=== PATIENT | male | born 1950 | race Caucasian/White ===

== ENCOUNTER → 2017-03-22 | Outpatient (CLI) | payer MEDICARE | LOC: LAB 14:02 | DX: C61 Malignant neoplasm of prostate (principal); Z12.5 Encounter for screening for malignant neoplasm of prostate | CPT/HCPCS: G0103 ==

== ENCOUNTER 2017-06-02 20:34 | Emergency (ER) | payer OTHER, MEDICARE ==
[~2017-06-02] VITALS: Ht 177.8 cm; Wt 64.9 kg
[2017-06-02] MEDS ORDERED: MORPHINE SULFA100 MG PO (20:53)
[2017-06-02] MEDS ORDERED: OXYCODONE SR 2020 MG PO (20:54)
--- OUTSIDE RECORDS SUMMARY | 2017-06-02 21:06 | External Medical Summary Rpt ---
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 Role Phone Dina MERCADO PCP [phone] Encounter [facility] Date(s): 04/17/16 - 04/24/16 [facility] [address] [place] [id number]- [phone] Discharge Disposition: OP Self Care or Home Attending Physician: Shukri MANCILLA MD Admitting Physician: Shukri MANCILLA MD Referring Physician: ANN MERCADO MD Reason for Visit PERIPHERAL VASCULAR DISEASE, UNSPECIFIED Vital Signs Most recent 1 2 3 to oldest [Reference Range]: Temperature Temporal artery Source scanning (04/24/16 8:58 AM) Temperature Fahrenheit Mode (04/24/16 8:58 AM) Temperature, 98.7 Deg F Fahrenheit (04/24/16 8:58 AM) [96.8-99.7 Deg F] Clinical 37.1 Deg C Temperature, (04/24/16 8:58 AM) C Peripheral 51 bpm Pulse Rate *LOW* [60-100 bpm] (04/24/16 8:58 AM) Heart Rate 60 bpm 56 bpm 58 bpm Monitored (04/24/16 2:45 PM) *LOW* *LOW* [60-100 bpm] (04/24/16 2:30 PM) (04/24/16 2:15 PM) Respiratory 25 Breaths/Min 25 Breaths/Min 34 Breaths/Min Rate [14-20 *HI* *HI* *HI* Breaths/Min] (04/24/16 2:45 PM) (04/24/16 2:30 PM) (04/24/16 2:15 PM) Blood 155/59 mmHg 150/65 mmHg 128/64 mmHg Pressure *HI* *HI* (04/24/16 2:15 PM) [90-140/60-9 (04/24/16 2:45 PM) (04/24/16 2:30 PM) 0 mmHg] Mean 89 99 87 Arterial (04/24/16 2:45 PM) (04/24/16 2:30 PM) (04/24/16 2:15 PM) Pressure (MAP)-BMDI Oxygen 96 % 96 % 95 % Saturation (04/24/16 2:00 PM) (04/24/16 1:45 PM) (04/24/16 1:30 PM) [94-100 %] Problem List Condition Effective Status Health Informant Dates Status Amputation,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) Arthritis(Co Active nfirmed) Back Active pain(Confirm ed) CA - Cancer Active patient of prostate(Con firmed) Chronic Active cough(Confir med) COPD(Confirm Active ed) 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) Hard of Active hearing(Conf irmed) Hemorrhoids( Active Confirmed) Peptic ulcer Active disease(Conf irmed) Peripheral Active neuropathy all extremities( Confirmed) PVD Active patient (peripheral vascular disease)(Con firmed) Pneumonia 02/21/13 Active x2(Confirmed ) Restless Active legs syndrome(Con firmed) Secondary Active patient cancer of bone(Confirm ed) SOB(Confirme Active d) wears Active dentures(Con firmed) Wears Active glasses(Conf irmed) Allergies, Adverse Reactions, Alerts No Known Allergies Medications atorvastatin 20 mg, Oral, At Bedtime, Refills: 0 famotidine 20 mg, Oral, Two Times A Day, Refills: 0 morphine 30 mg, Oral, every 12 hours, Refills: 0 [id number] mg, Oral, Every 4 Hours, 1-3 tablets q3-4 hours PRN pain, As Needed, Pain, Refills: 0 rOPINIRole 0.5 mg, Oral, At Bedtime, Refills: 0 Results GENERAL CHEMISTRY Most recent 1 to oldest [Reference Range]: eGFR 118 mL/min/1.73m2 [>=60 (04/24/16 9:05 AM) mL/min/1.73m 2] eGFR 97 mL/min/1.73m2 NonAfrican (04/24/16 9:05 AM) [>=60 mL/min/1.73m 2] BUN POC 20 mg/dL [8-26 mg/dL] (04/24/16 9:05 AM) Creatinine 0.8 mg/dL POC [0.6-1.3 (04/24/16 9:05 AM) mg/dL] COAGULATION Most recent 1 to oldest [Reference Range]: Protime POC 20.1 Second(s) [9.6-14.6 *HI* Second(s)] (04/24/16 9:07 AM) INR POC 1.7 [0.9-1.2] *HI* (04/24/16 9:07 AM) Immunizations No data available for this section Procedures Procedure Date Related Body Site Diagnosis cervical diskectomy & fusion Social History Social History Response Type Smoking Status Tobacco Use Within Last Twelve Months Cigarettes; Current every day smoker; Years of Tobacco Use 50; Packs/Tins Daily 1 Assessment and Plan Extracted from: Title: Angiogram Runoff Author: DOMINGUEZ DAVIS Date: 04/24/16 Infrapopliteal helen Greenberg MD Procedure Performed: Aortogram with runoff Procedural MD: Aliza Fire Control Technician G: _None Sedation: None Findings: No significant aorto-iliac dz Chronic right SFA occlusion _ Intervention: None Complications: No significant EBL: Minimal Specimen(s) Removed: _ N/A Full report to follow. Hospital Discharge Instructions Patient EducationAngiogram, Care After Conscious Sedation, Adult, Care After Groin Site Care (Custom) (CUSTOM) Smoking, You Can Quit, [id number]
--- OUTSIDE RECORDS SUMMARY | 2017-06-02 21:06 | External Medical Summary Rpt ---
Author Author [facility] Organization [facility] Address Unknown Phone Unavailable Care Team Providers Care Health And Safety Advisor Name Role Phone Dina MERCADO PCP [phone] Encounter [facility] Date(s): 04/17/16 - 04/24/16 [facility] [address] [place] [address]- [phone] Discharge Disposition: OP Self Care or Home [...] mg, Oral, every 12 hours, Refills: 0 [id number] mg, Oral, Every 4 Hours, 1-3 tablets [...] Performed: Aortogram with runoff Procedural MD: Aliza Timber Framer: _None Sedation: None Findings: No significant aorto-iliac dz Chronic right SFA occlusion _ Intervention: None Complications: No significant EBL: Minimal Specimen(s) Removed: _ N/A Full report to follow. Hospital Discharge Instructions Patient EducationAngiogram, Care After Conscious Sedation, Adult, Care After Groin Site Care (Custom) (CUSTOM) Smoking, You Can Quit, [id number]
--- OUTSIDE RECORDS SUMMARY | 2017-06-02 21:07 | External Medical Summary Rpt | CCD ---
Author Author , MADALYN VICENTE Address Unknown Phone [email or web address] Purpose Continuity of Care Document - 02-17-2017 through 2016 Results Labs Lab Lab Date Result Refere Interp Status Commen Order Detail nces retati t Range on Drugs Ur Scn (03-16-2017 10:53) Comment: Cutoff For Drugs Screened: Comment: Comment: Amphetamines 500 ng/ml Comment: Barbiturates 200 ng/ml Comment: Benzodiazepines 150 ng/ml Comment: Cocaine 150 ng/ml Comment: Methadone 200 ng/ml Comment: Opiates 100 ng/ml Comment: Phencyclidine 25 ng/ml Comment: THC 50 ng/ml Comment: Methamphetamine 500 ng/ml Comment: Tricyclic Antidepressants 300 ng/ml Comment: Oxycodone 100 ng/ml Comment: Propoxyphene 300 ng/ml Comment: Buprenorphine 10 ng/ml Comment: Comment: The normal value for all drugs tested is negative. This report includes unconfirmed screening results, with the cutoff values listed, to be used for medical treatment purposes only. Unconfirmed results must not be used for non-medical purposes such Bupreno [id number] Negativ complet rphine 017 09 e ed SerPl-m 10:53 Negativ Cnc e SCT Propoxy 2760326 Negativ complet ph Ur 017 09 e ed Ql 10:53 Negativ e SCT Oxycodo 4457829 Negativ complet ne Ur 017 4 e ed Ql Scn 10:53 Positiv e SCT Barbitu 7147036 Negativ complet rates 017 09 e ed Ur Ql 10:53 Negativ Scn e SCT Methado 3820621 Negativ complet ne Ur 017 09 e ed Ql Scn 10:53 Negativ e SCT Tricycl 8341570 Negativ complet ics Ur 017 09 e ed Ql Scn 10:53 Negativ e SCT Benzodi 7026178 Negativ complet az Ur 017 09 e ed Ql Scn 10:53 Negativ e SCT Amphet+ 6020166 Negativ complet Methamp 017 09 e ed het Ur 10:53 Negativ Ql e SCT Opiates 5486451 Negativ complet Ur Ql 017 4 e ed 10:53 Positiv e SCT Ampheta 0007484 Negativ complet mines 017 09 e ed Ur Ql 10:53 Negativ e SCT Cocaine 8158145 Negativ complet Ur Ql 017 09 e ed 10:53 Negativ e SCT PCP Ur 3946282 Negativ complet Ql Scn 017 09 e ed 10:53 Negativ e SCT Cannabi 1758081 Negativ complet noids 017 09 e ed SerPl 10:53 Negativ Ql e SCT CBC with Ordered Manual Differential panel in Blood (02-17-2017 13:27) LYMPH 34 % 10% - Normal complet 017 50% ed 13:27 Platele SLIGHT complet ts 017 DECREAS ed [Presen 13:27 E ce] in Blood by Light microsc opy
--- OUTSIDE RECORDS SUMMARY | 2017-06-02 21:07 | External Medical Summary Rpt | CCD ---
Author Author [facility] Organization [facility] Address Unknown Phone Unavailable Purpose Continuity of Care Document - through 2016
--- OUTSIDE RECORDS SUMMARY | 2017-06-02 21:07 | External Medical Summary Rpt | CCD ---
Author Author , MADALYN VICENTE Address Unknown Phone [email or web address] Purpose Continuity of Care Document - 02-17-2017 [...] be used for non-medical purposes such Bupreno [id number] Negativ complet rphine 017 09 e ed SerPl-m 10:53 Negativ Cnc e SCT Propoxy 2170430 Negativ complet ph Ur 017 09 e ed Ql 10:53 Negativ e SCT Oxycodo 6693381 Negativ complet ne Ur 017 4 e ed Ql Scn 10:53 Positiv e SCT Barbitu 3570165 Negativ complet rates 017 09 e ed Ur Ql 10:53 Negativ Scn e SCT Methado 5860689 Negativ complet ne Ur 017 09 e ed Ql Scn 10:53 Negativ e SCT Tricycl 4621518 Negativ complet ics Ur 017 09 e ed Ql Scn 10:53 Negativ e SCT Benzodi 7717689 Negativ complet az Ur 017 09 e ed Ql Scn 10:53 Negativ e SCT Amphet+ 4051836 Negativ complet Methamp 017 09 e ed het Ur 10:53 Negativ Ql e SCT Opiates 9360580 Negativ complet Ur Ql 017 4 e ed 10:53 Positiv e SCT Ampheta 9624509 Negativ complet mines 017 09 e ed Ur Ql 10:53 Negativ e SCT Cocaine 6402494 Negativ complet Ur Ql 017 09 e ed 10:53 Negativ e SCT PCP Ur 5608194 Negativ complet Ql Scn 017 09 e ed 10:53 Negativ e SCT Cannabi 6857810 Negativ complet noids 017 09 e ed SerPl 10:53 Negativ Ql e SCT CBC with Ordered Manual Differential panel in Blood (02-17-2017 13:27) LYMPH 34 % 10% - Normal complet 017 50% ed 13:27 Platele SLIGHT complet ts 017 DECREAS ed [Presen 13:27 E ce] in Blood by Light microsc opy
--- OUTSIDE RECORDS SUMMARY | 2017-06-02 21:08 | External Medical Summary Rpt | CCD ---
Demographics Preferred Language Uruguayan Marital Status Unknown [employer] Affiliation Unknown Race Unknown Ethnic Group Unknown Author Author , CINTHIA VICENTE Address Unknown Phone Immunization Unable to retrieve immunization data due to connection failure with Immunization Registry. Please try again later.
--- OUTSIDE RECORDS SUMMARY | 2017-06-02 21:08 | External Medical Summary Rpt | CCD ---
Demographics Preferred Language Kenyan Marital Status Unknown [facility] Affiliation Unknown Race Unknown Ethnic Group Unknown Author Author , CINTHIA VICENTE Address Unknown Phone Immunization Unable to retrieve immunization data due to connection failure with Immunization Registry. Please try again later.
--- OUTSIDE RECORDS SUMMARY | 2017-06-02 21:08 | External Medical Summary Rpt ---
Author Author [employer], [employer] Organization [employer] Address Unknown Phone Unavailable Results Prostate specific Ag [Mass/volume] in Cerebral spinal fluid Observa Value Referen Units Interpr Notes Date tion ce etation Range Prostate 0.0 - 4.0 ng/mL High No Mar 22 specific informati 2017 2:04 Ag on in PM [Mass/vol source ume] in data Cerebral spinal fluid CBC with Ordered Manual Differential panel in Blood Observa Value Referen Units Interpr Notes Date tion ce etation Range Lymphocyt 0 - 5 % Normal No Feb 17 es informati 2016 1:27 Variant/1 on in PM 00 source leukocyte data s in Blood by Manual count Basophils 0 - 0.2 K/MM3 Normal No Feb 17 inform2016 1:27 [#/volume on in PM ] in source Blood by data Automated count Basophils 0.1 - 2.0 % Normal No Feb 17 informati 2016 1:27 leukocyte on in PM s in source Blood by data Automated count Eosinophi 0.0 - 0.4 K/mm3 Normal No Feb 17 ls informati 2016 1:27 [#/volume on in PM ] in source Blood by data Automated count Eosinophi 0.1 - % Normal No Feb 17 ls 12.0 informati 2016 1:27 leukocyte on in PM s in source Blood by data Automated count Eosinophi 0 - 3 % Normal No Feb 17 ls/100 informati 2016 1:27 leukocyte on in PM s in source Blood by data Manual count Granulocy 1.3 - 8.0 K/mm3 Normal No Feb 17 kian informati 2016 1:27 [#/volume on in PM ] in source Blood by data Automated count Granulocy 37.0 - % Normal No Feb 17 kian/100 80.0 informati 2016 1:27 leukocyte on in PM s in source Blood by data Automated count Hematocri 42.0 - % High No Feb 17 t [Volume 52.0 informati 2016 1:27 on in PM Fraction] source of Blood data Hemoglobi 14.1 - g/dL Normal No Feb 17 n 18.0 informati 2016 1:27 [Mass/vol on in PM ume] in source Blood data Lymphocyt 0.7 - 4.5 K/mm3 Normal No Feb 17 es inform2016 1:27 [#/volume on in PM ] in source Unspecifi data ed specimen by Automated count Lymphocyt 10 - 50 % Normal No Feb 17 es inform2016 1:27 [#/volume on in PM ] in source Unspecifi data ed specimen by Automated count LYMPH 34 10 - 50 % Normal No Feb 17 informa 2016 tion in 1:27 PM source data Erythrocy 27 - 31.2 pg Normal No Feb 17 te mean informati 2016 1:27 corpuscul on in PM ar source hemoglobi data n [Entitic mass] Erythrocy 31.8 - g/dl Normal No Feb 17 te mean 35.4 informati 2016 1:27 corpuscul on in PM ar source hemoglobi data n concentra tion [Mass/vol ume] by Automated count Erythrocy 82.2 - fl Normal No Feb 17 te mean 97.8 ati 2016 1:27 corpuscul on in PM ar volume source [Entitic data volume] by Automated count Monocytes 0.1 - 1.0 K/mm3 Normal No Feb 17 informati 2016 1:27 [#/volume on in PM ] in source Blood by data Automated count Monocytes 1.7 - 9.3 % Normal No Feb 17 informati 2016 1:27 leukocyte on in PM s in source Blood by data Automated count Monocytes 2 - 9 % Normal No Feb 17ati 2016 1:27 leukocyte on in PM s in source Blood by data Automated count Platelet 7.4 - fl Normal No Feb 17 mean 10.4 informati 2016 1:27 volume on in PM [Entitic source volume] data in Blood by Automated count Platele SLIGHT No No No No Feb 17 ts DECREAS informa informa informa informa 2017 [Presen E tion in tion in tion in tion in 1:27 PM ce] in source source source source Blood data data data data by Light microsc opy Platelets 142 - 424 K/mm3 Low No Feb 17 informati 2017 1:27 [#/volume on in PM ] in source Blood data Neutrophi 42 - 76 % Normal No Feb 17 ls informati 2016 1:27 [#/volume on in PM ] in source Blood by data Automated count Erythrocy 4.6 - 6.2 M/mm3 Normal No Feb 17 kian 2016 1:27 [#/volume on in PM ] in source Amniotic data fluid Erythrocy 11.5 - % Normal No Feb 17 te 17.5 inform2016 1:27 distribut on in PM ion width source [Entitic data volume] by Automated count Cells No #CELLS No No Feb 17 Counted informati informati informati 2016 1:27 Total [#] on in on in on in PM in Blood source source source data data data Leukocyte 4.8 - K/MM3 Low No Feb 17 s 10.8 informati 2016 1:27 [#/volume on in PM ] in source Blood data CBC W Auto Differential panel in Blood Observa Value Referen Units Interpr Notes Date tion ce etation Range Basophils 0 - 0.2 K/MM3 Normal No Feb 17 inform2016 1:27 [#/volume on in PM ] in source Blood by data Automated count Basophils 0.1 - 2.0 % Normal No Feb 17 informati 2016 1:27 leukocyte on in PM s in source Blood by data Automated count Eosinophi 0.0 - 0.4 K/mm3 Normal No Feb 17 ls ati 2016 1:27 [#/volume on in PM ] in source Blood by data Automated count Eosinophi 0.1 - % Normal No Feb 17 ls/100 12.0 inform2016 1:27 leukocyte on in PM s in source Blood by data Automated count Granulocy 1.3 - 8.0 K/mm3 Normal No Feb 17 kian ati 2016 1:27 [#/volume on in PM ] in source Blood by data Automated count Granulocy 37.0 - % Normal No Feb 17 kian/100 80.0 informati 2016 1:27 leukocyte on in PM s in source Blood by data Automated count Hematocri 42.0 - % High No Feb 17 t [Volume 52.0 inform2016 1:27 on in PM Fraction] source of Blood data Hemoglobi 14.1 - g/dL Normal No Feb 17 n 18.0 informati 2016 1:27 [Mass/vol on in PM ume] in source Blood data Lymphocyt 0.7 - 4.5 K/mm3 Normal No Feb 17 es ati 2016 1:27 [#/volume on in PM ] in source Unspecifi data ed specimen by Automated count Lymphocyt 10 - 50 % Normal No Feb 17 es informati 2016 1:27 [#/volume on in PM ] in source Unspecifi data ed specimen by Automated count Erythrocy 27 - 31.2 pg Normal No Feb 17 te mean informati 2016 1:27 corpuscul on in PM ar source hemoglobi data n [Entitic mass] Erythrocy 31.8 - g/dl Normal No Feb 17 te mean 35.4 informati 2016 1:27 corpuscul on in PM ar source hemoglobi data n concentra tion [Mass/vol ume] by Automated count Erythrocy 82.2 - fl Normal No Feb 17 te mean 97.8 informati 2016 1:27 corpuscul on in PM ar volume source [Entitic data volume] by Automated count Monocytes 0.1 - 1.0 K/mm3 Normal No Feb 17 informati 2016 1:27 [#/volume on in PM ] in source Blood by data Automated count Monocytes 1.7 - 9.3 % Normal No Feb 17 / informati 2017 1:27 leukocyte on in PM s in source Blood by data Automated count Platelet 7.4 - fl Normal No Feb 17 mean 10.4 informati 2017 1:27 volume on in PM [Entitic source volume] data in Blood by Automated count Platelets 142 - 424 K/mm3 Low No Feb 17 informati 2016 1:27 [#/volume on in PM ] in source Blood data Erythrocy 4.6 - 6.2 M/mm3 Normal No Feb 17 kian informati 2016 1:27 [#/volume on in PM ] in source Amniotic data fluid Erythrocy 11.5 - % Normal No Feb 17 te 17.5 informati 2017 1:27 distribut on in PM ion width source [Entitic data volume] by Automated count Leukocyte 4.8 - K/MM3 Low No Feb 17 s 10.8 informati 2016 1:27 [#/volume on in PM ] in source Blood data
--- NOTE | 2017-06-02 23:55 | Emergency Room Report ---
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 N Clinical Suspician of Infection? N Mental Status: 1 - Regular (Normal Baseline) Sepsis Risk:Low Sepsis Risk Have you (or family members/close friends) recently traveled outside the [place]? N If Yes, where/when: Have you had exposure to infectious disease within the past month? N TB? Other? Specify: Source patient, RN notes reviewed, family, RN/MD Exam Limitations no limitations Comment This is a 67-year-old male patient presenting to the emergency room with RIGHT dorsal hand wound, with active bleeding, after scab fell off, earlier today. 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 ALLERGIES Coded Allergies: No Known Allergies (06/02/17) Home Medications Reported Medications MORPHINE SULFATE SR/ER (Morphine Sulf ER) 100 MG PO TID Oxycodone Hcl Sr (Oxycodone Sr 20MG) 30 MG PO Q12H6 History Medical History General CAD? No Angina: No [place]: No Hypertension? No Hyperlipidemia? No CHF? No DVT? No PE? No COPD? No Asthma? No Anemia? No GERD? No Gastric ulcers? No GI Bleed? No Hernia? No Thyroid Problems? No Hypothyroidism? No CVA? No Seizures? No Diabetes? No Renal Insuffiency? No End Stage Renal Disease? No UTI? No Stones? Yes BPH? No GB Disease: Yes Nephritic Syndrome? No Asplenia? No Hepatitis? No Sickle Cell Disease? No Arthritis? No Migraines? No Cataracts? No Glaucoma? No MRSA? No HIV? No TB? No Anxiety? No Depression? No Cancer? No More? Yes Additional hx: PROSTATE (STAGE 4) CANCER, CONE CANCER Immunization Hx DT/Tetanus 5-10 YRS Flu REFUSES Pneumonia REFUSES Surgical Hx Previous Surgery?Y BACK SURGERIES TOOTH EXTRACTION SKIN GRAFT RIGHT LEG Family History Family Hx Diabetes Yes CAD Yes Hypertension Yes Hyperlipidemia Yes Cancer Yes TB No Social History Smoking Hx Smoker: Current Every Day Smoker Tobacco: Yes Type Cigarettes Packs/day 1 1/2 - 2 Packs Alcohol Alcohol: No Review of Systems All Other Systems Reviewed and Negative Skin lesions (RIGHT hand skin wound) Physical Exam Vital Signs Vital Signs Date Time Temp Pulse Resp B/P Pulse O2 O2 Flow FiO2 Ox Delivery Rate 06/02 2359 98.0 82 18 135/82 96 06/02 2358 98.0 82 18 135/82 96 06/02 2040 98.0 78 18 133/87 94 General Appearance normal appearance, WD/WN, no apparent distress Respiratory Status Yes: trachea midline, chest symmetrical, non tender chest. No: respiratory distress. Lung Sounds bilateral: normal breath sounds, lungs clear. Cardiovascular normal exam, regular rate/rhythm, no peripheral edema, no gallop, no JVD, no murmur, no rub, normal peripheral pulses Gastrointestinal normal bowel sounds, normal exam, non tender, soft, no organomegaly Extremities non-tender, normal range of motion, normal inspection Neurologic alert, deicer element winder machine II-XII nml as tested, normal exam, no motor/sensory deficits, oriented x 3 Mental status depressed affect Skin warm/dry, pallor, multiple abrasions, multiple superficial wounds. RIGHT dorsal hand 1 x 1 cm all lesion, dehiscent, with active bleeding and distal part. Medical Decision Making LABS/Meds/Orders Pt receiving controlled substance in ED? No Comment Procedure note: RIGHT dorsal hand cauterized with silver nitrate x4, eventually producing good hemostasis. During procedure patient was asleep, in no distress. Advised son to keep wound covered and dry, follow-up with PCP if not better per discharge instructions. Results/Orders Laboratory Tests 06/02/172201: Creatine Kinase Cancelled, CK-MB (CK-2) Rel Index Cancelled, CK and CKMB Interp Cancelled, Troponin I Cancelled Current Medication Orders Sig/Delgado Start time Last Medication Dose Route Stop Time Status Admin Silver Nitrate/ 0 .STK-MED ONE 06/02 2309 DC Potassium Nitrate EX Lidocaine/Epinephrine 0 .STK-MED ONE 06/02 2051 DC .ROUTE Departure Departure Time of Disposition 2351 Disposition DC Home or Self Care(routine) Clinical Impression Primary Impression: Wound of skin Condition STABLE Patient Instructions How to Care for a Surgical Wound, Skin Wound Additional Instructions Please keep wound clean and dry, change dressing daily, till wound starts healing. Discharge Counseling Counseled pt/family regarding diagnosis, test results, medications/RX, home care, follow up needs Comment Please keep wound clean and dry, change dressing daily, till wound starts healing. ED Critical Care Critical Care No at 0500
[2017-06-02 23:59] VITALS: BP 135/82
== END 2017-06-03 | disposition home or self-care (01) ==
LOC: ER 20:34
DX: S60.921A Unspecified superficial injury of right hand, initial encounter (principal); C61 Malignant neoplasm of prostate; C79.51 Secondary malignant neoplasm of bone

== ENCOUNTER 2017-06-27 13:47 | Emergency (ER) | payer OTHER, MEDICARE ==
[~2017-06-27] VITALS: Ht 177.8 cm; Wt 59.9 kg
[~2017-06-27 13:47] MED LIST: MORPHINE SULFA100 MG PO; OXYCODONE SR 2020 MG PO
--- NOTE | 2017-06-27 14:07 | Emergency Room Report ---
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 N Clinical Suspician of Infection? N Mental Status: 1 - Regular (Normal Baseline) Sepsis Risk:Low Sepsis Risk Have you (or family members/close friends) recently traveled outside the [place]? N If Yes, where/when: Have you had exposure to infectious disease within the past month? TB? Other? Specify: This is 67 years old white male with metastatic prostatic cancer. He is a patient of [facility] for chemotherapy. He was working with a table saw when he ran his RIGHT hand into it. He resulted in a deep laceration involving skin and subcutaneous tissue muscles and the base of the first metacarpal. He is unable to move his right thumb. Source patient, RN notes reviewed, family Exam Limitations no limitations ALLERGIES Coded Allergies: No Known Allergies (06/27/17) Home Medications Reported Medications MORPHINE SULFATE SR/ER (Morphine Sulf ER) 100 MG PO TID Oxycodone Hcl Sr (Oxycodone Sr 20MG) 30 MG PO Q12H6 History Medical History General CAD? No Angina: No MS: No Hypertension? No Hyperlipidemia? No CHF? No DVT? No PE? No COPD? No Asthma? No Anemia? No GERD? No Gastric ulcers? No GI Bleed? No Hernia? No Thyroid Problems? No Hypothyroidism? No CVA? No Seizures? No Diabetes? No Renal Insuffiency? No End Stage Renal Disease? No UTI? No Stones? Yes BPH? No GB Disease: Yes Nephritic Syndrome? No Asplenia? No Hepatitis? No Sickle Cell Disease? No Arthritis? No Migraines? No Cataracts? No Glaucoma? No MRSA? No HIV? No TB? No Anxiety? No Depression? No Cancer? No More? Yes Additional hx: PROSTATE (STAGE 4) CANCER, CONE CANCER Immunization Hx Ped.Immunizations UTD Yes DT/Tetanus 5-10 YRS Flu REFUSES Pneumonia REFUSES Surgical Hx Previous Surgery?Y BACK SURGERIES TOOTH EXTRACTION SKIN GRAFT RIGHT LEG RODS AND SPACERS IN NECK Family History Family Hx Diabetes Yes CAD Yes Hypertension Yes Hyperlipidemia Yes Cancer Yes TB No Social History Smoking Hx Smoker: Current Every Day Smoker Tobacco: Yes Type Cigarettes Packs/day 1 1/2 - 2 Packs Are you/the child exposed to second-hand smoke: No Alcohol Alcohol: No Review of Systems All Other Systems Reviewed and Negative Constitutional no symptoms reported Eyes no symptoms reported ENT no symptoms reported. Respiratory no symptoms reported Cardiovascular no symptoms reported Gastrointestinal no symptoms reported Genitourinary no symptoms reported. Musculoskeletal see HPI Skin no symptoms reported, see HPI Psychiatric/Neurological no symptoms reported Physical Exam Vital Signs Vital Signs Date Time Temp Pulse Resp B/P Pulse O2 O2 Flow FiO2 Ox Delivery Rate 06/27 1420 87 18 139/73 94 06/27 1351 97.8 89 18 120/78 93 - WBC >12,000 or <4,000 or 10% bands? 2 or more SIRS Criteria Met? B/P:120/78 MAP:92 Creatinine >2.0? UA output<0.5ml/kg/hr for 2 hrs? Platelet count >100,000? Lactate >2.0mmol/1? INR >1.2 or PTT > than 60 sec? Evidence of Organ Dysfunction? Provider documented clinical suspician of infection? N Sepsis Criteria Count: 0 Sepsis Risk: Low Sepsis Risk General Appearance normal appearance, WD/WN Ear, Nose, Throat hearing grossly normal, normal ENT inspection Neck normal inspection, non-tender, supple, full range of motion Respiratory Status Yes: trachea midline, chest symmetrical, non tender chest. No: respiratory distress. Lung Sounds bilateral: normal breath sounds, lungs clear. 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 Mental status normal mood/affect Medical Decision Making LABS/Meds/Orders Pt receiving controlled substance in ED? No Results/Orders Current Medication Orders Sig/Delgado Start time Last Medication Dose Route Stop Time Status Admin Sodium Chloride 1,000 ML .STK-MED ONE 06/27 1401 DC IV Sodium Chloride 10 ML PRN PRN 06/27 1400 AC IV 06/28 1400 Orders Procedure Date/time Status WRIST-3 VIEWS-RT 06/27 1400 Active IV SALINE LOCK 06/27 1400 Active Departure Departure Time of Disposition 1422 Disposition DC/XFER from ER to [facility] Clinical Impression Primary Impression: Fracture of first metacarpal bone of right hand Secondary Impressions: Laceration of hand with tendon involvement including fingers, Laceration of hand, complicated, Metastatic adenocarcinoma to prostate Condition STABLE Additional Instructions Althought , the patient is in hospice service for metastatic prostatic cancer he was admaent about keeping his finger. The patien underwent an x ray, started IVF and contacted for Trauma/Hand surgeon. I spoke with Dr. Cline who accepted him for evalution. The Patient took his pain medicine this morning and remianed hemodynamically stable untill transport crew arrived. I discussed with his Grand niece his x ray findings. Guillermo Holley Discharge Counseling Counseled pt/family regarding diagnosis, test results, follow up needs ED Critical Care Critical Care No If Critical Care minutes are documented, the time involved in the performance of seperately reportable procedures was not counted toward critical care time documented. I directly delivered medical care to this critically ill and/or injured patient. Timely evaluation and treatment was necessary to address the significant organ system(s) dysfunction present in this patient.
--- OUTSIDE RECORDS SUMMARY | 2017-06-27 14:09 | External Medical Summary Rpt | CCD ---
Author Author , MADALYN VICENTE Address Unknown Phone [email or web address] Purpose Continuity of Care Document - 02-17-2017 through 2016 Problems Code Diagnosis DOS Provider Status R23.8 OTHER SKIN CHANGES Z51.81 Encounter for therapeutic drug level monitoring Results Labs Lab Lab Date Result Refere [...] be used for non-medical purposes such Bupreno [id number] Negativ complet rphine 017 09 e ed SerPl-m 10:53 Negativ Cnc e SCT Propoxy [id number] Negativ complet ph Ur 017 09 e ed Ql 10:53 Negativ e SCT Oxycodo 1019087 Negativ complet ne Ur 017 4 e ed Ql Scn 10:53 Positiv e SCT Barbitu [id number] Negativ complet rates 017 09 e ed Ur Ql 10:53 Negativ Scn e SCT Methado [id number] Negativ complet ne Ur 017 09 e ed Ql Scn 10:53 Negativ e SCT Tricycl 8343220 Negativ complet ics Ur 017 09 e ed Ql Scn 10:53 Negativ e SCT Benzodi 4276030 Negativ complet az Ur 017 09 e ed Ql Scn 10:53 Negativ e SCT Amphet+ 2 [id number] Negativ complet Methamp 017 09 e ed het Ur 10:53 Negativ Ql e SCT Opiates [id number] Negativ complet Ur Ql 017 4 e ed 10:53 Positiv e SCT Ampheta 9290897 Negativ complet mines 017 09 e ed Ur Ql 10:53 Negativ e SCT Cocaine 7611788 Negativ complet Ur Ql 017 09 e ed 10:53 Negativ e SCT PCP Ur [id number] Negativ complet Ql Scn 017 09 e ed 10:53 Negativ e SCT Cannabi 3766974 Negativ complet noids 017 09 e ed SerPl 10:53 Negativ Ql e SCT CBC with Ordered Manual Differential panel in Blood (02-17-2017 13:27) LYMPH 34 % 10% - Normal complet 017 50% ed 13:27 Platele SLIGHT complet ts 017 DECREAS ed [Presen 13:27 E ce] in Blood by Light microsc opy
--- OUTSIDE RECORDS SUMMARY | 2017-06-27 14:09 | External Medical Summary Rpt | CCD ---
Demographics Preferred Language Grenadian Marital Status Unknown Taoist Affiliation Unknown Race Unknown Ethnic Group Unknown Author Author CINTHIA Address Unknown Phone Immunization No patient found.
--- OUTSIDE RECORDS SUMMARY | 2017-06-27 14:09 | External Medical Summary Rpt | CCD ---
Demographics Preferred Language Mozambican Marital Status Unknown Restoration Affiliation Unknown Race Unknown Ethnic Group Unknown Author Author CINTHIA Address Unknown Phone Immunization No patient found.
--- OUTSIDE RECORDS SUMMARY | 2017-06-27 14:09 | External Medical Summary Rpt | CCD ---
Author Author , MADALYN VICENTE Address Unknown Phone [email or web address] Purpose Continuity of Care Document - 02-17-2017 [...] be used for non-medical purposes such Bupreno [id number] Negativ complet rphine 017 09 e ed SerPl-m 10:53 Negativ Cnc e SCT Propoxy 1033359 Negativ complet ph Ur 017 09 e ed Ql 10:53 Negativ e SCT Oxycodo 1547522 Negativ complet ne Ur 017 4 e ed Ql Scn 10:53 Positiv e SCT Barbitu 3470015 Negativ complet rates 017 09 e ed Ur Ql 10:53 Negativ Scn e SCT Methado 1673053 Negativ complet ne Ur 017 09 e ed Ql Scn 10:53 Negativ e SCT Tricycl 5420481 Negativ complet ics Ur 017 09 e ed Ql Scn 10:53 Negativ e SCT Benzodi 4078555 Negativ complet az Ur 017 09 e ed Ql Scn 10:53 Negativ e SCT Amphet+ 2 3263770 Negativ complet Methamp 017 09 e ed het Ur 10:53 Negativ Ql e SCT Opiates 3392607 Negativ complet Ur Ql 017 4 e ed 10:53 Positiv e SCT Ampheta 7807658 Negativ complet mines 017 09 e ed Ur Ql 10:53 Negativ e SCT Cocaine 9756370 Negativ complet Ur Ql 017 09 e ed 10:53 Negativ e SCT PCP Ur 3983969 Negativ complet Ql Scn 017 09 e ed 10:53 Negativ e SCT Cannabi 0675874 Negativ complet noids 017 09 e ed SerPl 10:53 Negativ Ql e SCT CBC with Ordered Manual Differential panel in Blood (02-17-2017 13:27) LYMPH 34 % 10% - Normal complet 017 50% ed 13:27 Platele SLIGHT complet ts 017 DECREAS ed [Presen 13:27 E ce] in Blood by Light microsc opy
[2017-06-27 15:04] VITALS: BP 123/85
--- NOTE | 2017-06-28 07:18 | RADIOLOGY REPORT PS360 ---
WRIST-3 VIEWS-RT HISTORY: Laceration, pain SAW INJURY ORDERING PHYSICIAN: Bridget Holley MD PATIENT AGE: 67 years COMPARISON: None FINDINGS: There is bandage artifact overlying the lateral aspect of the wrist. There is a bony fragment noted at the first metacarpal carpal junction consistent with an avulsion injury and may be either from the base of the first metacarpal or the trapezium. This fragment measures 7 mm. Artifact is present from the bandage. There is also some bony fragmentation type density of the at the distal aspect of the radius anteriorly seen on the lateral view. IMPRESSION: 1. Avulsion fracture at the first metacarpal carpal joint. 2. Possible avulsion at the anterior distal aspect of the radius
== END 2017-06-27 15:05 | disposition short-term general hospital (02) ==
LOC: ER 13:47
DX: S61.011A Laceration without foreign body of right thumb without damage to nail, initial encounter (principal); S66.021A Laceration of long flexor muscle, fascia and tendon of right thumb at wrist and hand level, initial encounter; W31.2XXA Contact with powered woodworking and forming machines, initial encounter; Y92.019 Unspecified place in single-family (private) house as the place of occurrence of the external cause; F17.210 Nicotine dependence, cigarettes, uncomplicated; Z88.6 Allergy status to analgesic agent; C61 Malignant neoplasm of prostate